=== PATIENT | female | born 1955 | race Caucasian/White ===

== ENCOUNTER 2023-11-13 13:37 | Outpatient (CLI) | payer MEDICARE, MEDICAID, SELFPAY | END 2023-11-13 13:38 | disposition home or self-care (01) | LOC: AMB 11-17 15:15 | PROVIDERS: PCP Family Medicine; Visit Provider Family Medicine | DX: R41.82 Altered mental status, unspecified (principal); M54.9 Dorsalgia, unspecified | CPT/HCPCS: A0425; A0427 ==

== ENCOUNTER 2023-11-13 14:07 | Emergency (ER) | payer MEDICARE, MEDICAID, SELFPAY ==
[2023-11-13] VITALS (43 sets, daily range): BP systolic 138–191; BP diastolic 59–140; PULSE 105–122; RESP 16–26; TEMP 36.1–36.7; O2SAT 90–98; BMI 31.5
--- NOTE | 2023-11-13 14:43 | ED_ITS ---
HPI - Altered Mental Status General Time Seen by Provider: 14:43 <June Parra MD - Last Filed: 11/14/23 21:43> Date Seen: 11/13/23 <June Parra MD - Last Filed: 11/14/23 21:43> Chief Complaint: Altered Mental Status <June Parra MD - Last Filed: 11/14/23 21:43> Stated Complaint: Fall, AMS <June Parra MD - Last Filed: 11/14/23 21:43> Time Seen by Provider: 11/13/23 14:43 <June Parra MD - Last Filed: 11/14/23 21:43> Source: patient, EMS and RN notes reviewed <June Parra MD - Last Filed: 11/14/23 21:43> Mode of arrival: EMS <June Parra MD - Last Filed: 11/14/23 21:43> History of Present Illness HPI narrative: This 68-year-old female is brought in by EMS from [address] [place] [address] where she resides with concern of altered mental status. She reportedly is not near her baseline. She did have a fall on November 10, today is now the . She is noted to have decreased mental status from her baseline. EMS did find her to be 86% on room air, did place her on oxygen. Patient is sleepy but easily arousable, states she does not remember falling. Denies any pain, will basically answer yes no questions, falls asleep easily. She does have advanced directives and is listed to be DNR on her current paperwork. The demographic sheet provided list other past medical history as alcoholic dependence with alcohol-induced persisting dementia, dementia without behavioral disturbance, history of major depressive disorder, GERD, anemia. She has history of degenerative cervical spine disease. She has had hip replacement but do not know which side at this point. She has type 2 diabetes, osteoporosis, hypertension, urinary incontinence, COPD/asthma, seasonal allergies. Current medications: Acetaminophen, cetirizine, divalproex, Advair, metoprolol succinate 25 mg, calcium, multivitamin, vitamin D3, along the Pean, Peridex. Also has p.r.n. medications on her listed sheet. Nursing notes have oxycodone for pain as well. <June Parra MD - Last Filed: 11/14/23 21:43> MD complaint: altered mental status <June Parra MD - Last Filed: 11/14/23 21:43> Related Data Home Medications: Home Medications ?Medication ?Instructions ?Recorded ?Confirmed acetaminophen 500 mg tablet 1,000 mg PO 3XD PRN pain 11/13/23 11/13/23 (Acetaminophen Extra Strength) albuterol sulfate 90 mcg/actuation 2 puff inhalation Q4H PRN 11/13/23 11/13/23 aerosol inhaler (Ventolin HFA) aspirin 81 mg capsule (Vazalore) 81 mg PO DAILY 11/13/23 11/13/23 calcium carbonate (Oyster [place] 500 mg PO BID 11/13/23 11/13/23 Calcium 500) cetirizine 10 mg tablet 10 mg PO DAILY 11/13/23 11/13/23 chlorhexidine gluconate 0.12 % PO DAILY 11/13/23 mouthwash cholecalciferol (vitamin D3) 50 PO 11/13/23 mcg (2,000 unit) tablet divalproex 500 mg tablet,delayed 1,000 mg PO BID 11/13/23 11/13/23 release fluticasone 250 mcg-salmeterol 50 1 ea inhalation BID 11/13/23 11/13/23 mcg/dose blistr powdr for inhalation (Advair Diskus) multivitamin with folic acid 400 1 tab PO DAILY 11/13/23 11/13/23 mcg tablet (Tab-A-Delroy) oxycodone 5 mg tablet 2.5 mg PO Q6H PRN pain 11/13/23 11/13/23 <June Parra MD - Last Filed: 11/14/23 21:43> Allergies/Adverse Reactions: Allergies Allergy/AdvReac Type Severity Reaction Status Date / Time No Known Drug Allergies Allergy Verified 11/13/23 17:07 <June Parra MD - Last Filed: 11/14/23 21:43> Review of Systems Narrative: Patient is not currently reliable historian to give meaningful review of systems. <June Parra MD - Last Filed: 11/14/23 21:43> Exam Const: Vital Signs, click to edit/add: Vital Signs - 24 hr 11/13/23 21:42 Temperature 97.6 F Pulse Rate 111 H Respiratory Rate 18 Blood Pressure 146/62 H Pulse Oximetry 95 Patient is somnolent, is arousable. Will verbalize minimally, mostly stating no to questions. She did tell me that she did not remember when asked her about the fall. Sclera do look clear, conjugate gaze. She is currently wearing oxygen, will have nursing staff see if they can titrate down and monitor what happens with her oxygen saturation. Symmetrical facial function. She does fol low commands, will lift her arms, do note some intention tremor of both of her upper extremities. She will not lift either leg for me but did point in flex her feet for the student that working with us. Lungs sound clear anteriorly, cannot get to posterior lung mejia at this time. CV is fast irregular, do not hear any murmur. Abdomen seems to be nondistended, nontender, do not feel any masses organomegaly. 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 Will raise her arms off the bed. She has some terminal dysmetria when asking to touch her nose. <June Parra MD - Last Filed: 11/14/23 21:43> Vital Signs, click to edit/add: Vital Signs - 24 hr 11/13/23 21:42 Temperature 97.6 F Pulse Rate 111 H Respiratory Rate 18 Blood Pressure 146/62 H Pulse Oximetry 95 <Marlyn Hinojosa MD - Last Filed: 11/13/23 22:22> Documenting provider has reviewed patient's vital signs: yes <June Parra MD - Last Filed: 11/14/23 21:43> Course Course ED Course: This 68-year-old female with underlying dementia with recent fall and it worsening altered mental status will need a head CT to rule out acute intracranial pathology. Will get full complement of labs. She presumably has some new hypoxia, start with a portable chest x-ray. She is mildly tachycardic. Need to consider infectious etiology which certainly could be pneumonia, UTI. She really has nothing focal on exam at this point outside of the hypoxia. Will look at reported to ensure no ischemic pathology. Consider thromboembolic disease, am obtaining screening D-dimer. She is not febrile at this point but will watch for this. Have her on cardiac monitoring and pulse oximetry at this time. <June Parra MD - Last Filed: 11/14/23 21:43> Reevaluation(s) Time of Reevaluation #1: 16:11 <June Parra MD - Last Filed: 11/14/23 21:43> Reevaluation #1: Spoke with her guardian Venkata whom lives in [place]. She states that they have been giving her pain meds, wonder if this is the oxycodone. Patient has not reportedly been eating. She was told that they did do x-rays and they were negative for fracture, we are presuming this is the lumbar spine. Reviewed with her that patient has new anemia, hemoglobin on 08/04/2023 was 12.3 and now she is 8.3[place] [address], infectious etiology needs to be considered as well. We are going to proceed with CT of chest abdomen pelvis with IV contrast. She would have us attempt to figure out what is wrong and see if there is anything easily correctable. She would consider blood transfusion. I will do a type and screen. <June Parra MD - Last Filed: 11/14/23 21:43> Reevaluation #2: Patient was signed out to me by Dr. Roberts to follow up on CT results. Radiology did call with result, she has an L1 compression fracture with some retropulsion and mild central stenosis, she has a comminuted periprosthetic fracture of her right acetabulum as well as fractures of the superior and inferior pubic rami on the right. She does have some associated hemorrhage in the pelvis related to her pelvic fractures, they did not see any active extravasation. She was persistently tachycardic here, did elect to give her blood transfusion. I updated her guardian, Avelina. I reviewed her case with Dr. Mi, we agreed that she would be best served at a larger center. [facility] has agreed to take her in transfer. I did give her a dose of Dilaudid 0.5 mg here, she is really not able to express much, and I suspect she does have a degree of pain which may be part of her tachycardia. Difficult to assess neurologic status in terms of lower extremity strength as she is not able to cooperate with exam at this time. <Marlyn Hinojosa MD - Last Filed: 11/13/23 22:22> Vital Signs Vital signs: Initial Vital Signs Temperature 96.9 F L 11/13/23 14:16 Temperature Source Temporal Artery Scan 11/13/23 14:16 Pulse Rate 111 H 11/13/23 14:16 Pulse Rhythm Regular 11/13/23 14:16 Pulse Strength 3+ Normal 11/13/23 14:16 Respiratory Rate 26 H 11/13/23 14:16 Blood Pressure 191/78 H 11/13/23 14:16 Blood Pressure Mean 115 H 11/13/23 14:16 Blood Pressure Position High-Fowlers 11/13/23 14:16 Pulse Oximetry 96 11/13/23 14:16 Oxygen Delivery Method Nasal Cannula 11/13/23 14:16 Oxygen Flow Rate 4 11/13/23 14:16 Vital Signs Temperature 96.9 F L 11/13/23 14:16 Pulse Rate 111 H 11/13/23 14:16 Respiratory Rate 26 H 11/13/23 14:16 Blood Pressure 191/78 H 11/13/23 14:16 Pulse Oximetry 96 11/13/23 14:16 Oxygen Delivery Method Nasal Cannula 11/13/23 14:16 Oxygen Flow Rate 4 11/13/23 14:16 Temperature 97.6 F 11/13/23 21:42 Pulse Rate 111 H 11/13/23 21:42 Respiratory Rate 18 11/13/23 21:42 Blood Pressure 146/62 H 11/13/23 21:42 Pulse Oximetry 95 11/13/23 21:42 Oxygen Delivery Method Nasal Cannula 11/13/23 20:45 Oxygen Flow Rate 2 11/13/23 20:45 <June Parra MD - Last Filed: 11/14/23 21:43> Initial Vital Signs Temperature 96.9 F L 11/13/23 14:16 Temperature Source Temporal Artery Scan 11/13/23 14:16 Pulse Rate 111 H 11/13/23 14:16 Pulse Rhythm Regular 11/13/23 14:16 Pulse Strength 3+ Normal 11/13/23 14:16 Respiratory Rate 26 H 11/13/23 14:16 Blood Pressure 191/78 H 11/13/23 14:16 Blood Pressure Mean 115 H 11/13/23 14:16 Blood Pressure Position High-Fowlers 11/13/23 14:16 Pulse Oximetry 96 11/13/23 14:16 Oxygen Delivery Method Nasal Cannula 11/13/23 14:16 Oxygen Flow Rate 4 11/13/23 14:16 Vital Signs Temperature 96.9 F L 11/13/23 14:16 Pulse Rate 111 H 11/13/23 14:16 Respiratory Rate 26 H 11/13/23 14:16 Blood Pressure 191/78 H 11/13/23 14:16 Pulse Oximetry 96 11/13/23 14:16 Oxygen Delivery Method Nasal Cannula 11/13/23 14:16 Oxygen Flow Rate 4 11/13/23 14:16 Temperature 97.6 F 11/13/23 21:42 Pulse Rate 111 H 11/13/23 21:42 Respiratory Rate 18 11/13/23 21:42 Blood Pressure 146/62 H 11/13/23 21:42 Pulse Oximetry 95 11/13/23 21:42 Oxygen Delivery Method Nasal Cannula 11/13/23 20:45 Oxygen Flow Rate 2 11/13/23 20:45 <Marlyn Hinojosa MD - Last Filed: 11/13/23 22:22> Medications Administered Medications: Discontinued Medications Generic Name Dose Route Start Last Admin Trade Name Freq PRN Reason Stop Dose Admin Hydromorphone HCl 0.5 mg 11/13/23 19:43 11/13/23 20:17 Hydromorphone 0.5 Mg/0.5 Ml Inj IVP 11/13/23 19:44 0.5 mg ONCE ONE Administration Hydromorphone HCl 0.5 mg 11/13/23 21:17 11/13/23 22:02 Hydromorphone 0.5 Mg/0.5 Ml Inj IVP 11/13/23 21:18 Not Given ONCE ONE Sodium Chloride 250 ml 11/13/23 18:26 11/13/23 20:17 0.9 % Sodium Chloride 250 Ml IV 11/14/23 23:59 250 ml ONCE PRN Administration <June Parra MD - Last Filed: 11/14/23 21:43> Discontinued Medications Generic Name Dose Route Start Last Admin Trade Name Freq PRN Reason Stop Dose Admin Hydromorphone HCl 0.5 mg 11/13/23 19:43 11/13/23 20:17 Hydromorphone 0.5 Mg/0.5 Ml Inj IVP 11/13/23 19:44 0.5 mg ONCE ONE Administration Hydromorphone HCl 0.5 mg 11/13/23 21:17 11/13/23 22:02 Hydromorphone 0.5 Mg/0.5 Ml Inj IVP 11/13/23 21:18 Not Given ONCE ONE Sodium Chloride 250 ml 11/13/23 18:26 11/13/23 20:17 0.9 % Sodium Chloride 250 Ml IV 11/14/23 23:59 250 ml ONCE PRN Administration <Marlyn Hinojosa MD - Last Filed: 11/13/23 22:22> MDM - Altered Mental Status Lab Data Attestation: I reviewed the patient's lab results. <June Parra MD - Last Filed: 11/14/23 21:43> Labs: Lab Results 11/13/23 11/13/23 11/13/23 Range/Units 15:02 15:25 15:30 WBC 17.26 H (4.50-11.00) K/uL RBC 2.79 L (4.00-5.20) m/uL Hgb 8.3 L (12.0-16.0) gm/dL Hct 23.9 L (33.0-51.0) % MCV 86 (80-100) fL MCH 30 (26-34) pg MCHC 35 (32-36) gm/dL RDW Coeff of Gomez 14.1 (11.5-15.5) % Plt Count 288 (140-440) K/uL Neut % (Auto) 74.1 H (42.0-72.0) % Lymph % (Auto) 9.5 L (20-44) % [place] % (Auto) 13.8 H (0.0-11.0) % Eos % (Auto) 0.0 (0.0-7.0) % Baso % (Auto) 0.5 (0.0-3.0) % Neut # (Auto) 12.80 H (1.7-7.0) K/uL Lymph # (Auto) 1.60 (0.90-2.90) K/uL [place] # (Auto) 2.40 H (0.00-0.90) K/UL Eos # (Auto) 0.00 (0.00-0.50) K/uL Baso # (Auto) 0.10 (0.00-0.30) K/uL Abs Immat Gran (auto) 0.40 H (0.00-0.30) K/uL Imm/Tot Granulo (auto) 2.1 % Absolute Retic 0.14 H (0.03-0.08) # Percent Retic 5.1 H (0.5-2.0) % Immature Retic Fraction 13.3 (3.0-15.9) % Retic Hgb Equivalent 28.0 L (29.0-35.0) pg D-Dimer Quant (PE/DVT) (0.00-0.50) ug/ml Sodium 129 L (135-149) mmol/L Potassium 4.0 (3.6-5.1) mmol/L Chloride 94 L (96-114) mmol/L Carbon Dioxide 27 (20-32) mmol/L Anion Gap 8 (7-15) mEq/L BUN 40 H (7-30) mg/dL Creatinine 0.7 (0.5-1.5) mg/dL Estimated Creat Clear 50.41 Estimated GFR 94 ml/min Glucose 236 H (60-115) mg/dL Lactate 1.4 (0.5-1.9) mmol/L Calcium 9.2 (8.4-10.6) mg/dL Iron 36 L (37-170) ug/dL TIBC 301 (265-497) ug/dL % Saturation 12 L (20-50) % Ferritin 203.0 (11.1-264.0) ng/mL Total Bilirubin 0.7 (0.1-1.5) mg/dL AST 26 (12-35) U/L ALT 13 (4-35) U/L Alkaline Phosphatase 60 (40-150) U/L Total Creatine Kinase 123 H (41-117) U/L Troponin I < 0.01 L (0.01-0.04) ng/mL C-Reactive Protein 20.4 H (0.5-1.0) mg/dL Total Protein 7.2 (6.0-8.3) g/dL Albumin 4.0 (3.3-5.0) g/dL Vitamin B12 833 (243-894) pg/mL Procalcitonin 0.17 (<0.50) ng/mL Urine Color (Yellow) Urine Appearance (Clear) Urine pH (5.0-8.5) Ur Specific [place] (1.000-1.030) Urine Protein (Negative) Urine Glucose (UA) (Negative) Urine Ketones (Negative) Urine Blood (Negative) Urine Nitrite (Negative) Urine Bilirubin (Negative) Urine Urobilinogen (0.2-1.0) Ur Leukocyte Esterase (Negative) Urine RBC (0-2) Urine WBC (0-5) Ur Squamous Epith Cells (None-Few) Urine Bacteria (None) Lab Acknowledgement Test Added Blood Type Antibody Screen Crossmatch (AHG) 11/13/23 11/13/23 11/13/23 Range/Units 16:00 16:07 16:13 WBC (4.50-11.00) K/uL RBC (4.00-5.20) m/uL Hgb (12.0-16.0) gm/dL Hct (33.0-51.0) % MCV (80-100) fL MCH (26-34) pg MCHC (32-36) gm/dL RDW Coeff of Gomez (11.5-15.5) % Plt Count (140-440) K/uL Neut % (Auto) (42.0-72.0) % Lymph % (Auto) (20-44) % [place] % (Auto) (0.0-11.0) % Eos % (Auto) (0.0-7.0) % Baso % (Auto) (0.0-3.0) % Neut # (Auto) (1.7-7.0) K/uL Lymph # (Auto) (0.90-2.90) K/uL [place] # (Auto) (0.00-0.90) K/UL Eos # (Auto) (0.00-0.50) K/uL Baso # (Auto) (0.00-0.30) K/uL Abs Immat Gran (auto) (0.00-0.30) K/uL Imm/Tot Granulo (auto) % Absolute Retic (0.03-0.08) # Percent Retic (0.5-2.0) % Immature Retic Fraction (3.0-15.9) % Retic Hgb Equivalent (29.0-35.0) pg D-Dimer Quant (PE/DVT) 2.84 H (0.00-0.50) ug/ml Sodium (135-149) mmol/L Potassium (3.6-5.1) mmol/L Chloride (96-114) mmol/L Carbon Dioxide (20-32) mmol/L Anion Gap (7-15) mEq/L BUN (7-30) mg/dL Creatinine (0.5-1.5) mg/dL Estimated Creat Clear Estimated GFR ml/min Glucose (60-115) mg/dL Lactate (0.5-1.9) mmol/L Calcium (8.4-10.6) mg/dL Iron (37-170) ug/dL TIBC (265-497) ug/dL % Saturation (20-50) % Ferritin (11.1-264.0) ng/mL Total Bilirubin (0.1-1.5) mg/dL AST (12-35) U/L ALT (4-35) U/L Alkaline Phosphatase (40-150) U/L Total Creatine Kinase (41-117) U/L Troponin I (0.01-0.04) ng/mL C-Reactive Protein (0.5-1.0) mg/dL Total Protein (6.0-8.3) g/dL Albumin (3.3-5.0) g/dL Vitamin B12 (243-894) pg/mL Procalcitonin (<0.50) ng/mL Urine Color Yellow (Yellow) Urine Appearance Clear (Clear) Urine pH 7.0 (5.0-8.5) Ur Specific [place] 1.015 (1.000-1.030) Urine Protein Negative (Negative) Urine Glucose (UA) 2+ A (Negative) Urine Ketones Negative (Negative) Urine Blood Negative (Negative) Urine Nitrite Negative (Negative) Urine Bilirubin Negative (Negative) Urine Urobilinogen 0.2 (0.2-1.0) Ur Leukocyte Esterase Negative (Negative) Urine RBC 0-2 (0-2) Urine WBC 0-2 (0-5) Ur Squamous Epith Cells None (None-Few) Urine Bacteria None (None) Lab Acknowledgement Test Added Blood Type Antibody Screen Crossmatch (AHG) 11/13/23 Range/Units 16:48 WBC (4.50-11.00) K/uL RBC (4.00-5.20) m/uL Hgb (12.0-16.0) gm/dL Hct (33.0-51.0) % MCV (80-100) fL MCH (26-34) pg MCHC (32-36) gm/dL RDW Coeff of Gomez (11.5-15.5) % Plt Count (140-440) K/uL Neut % (Auto) (42.0-72.0) % Lymph % (Auto) (20-44) % [place] % (Auto) (0.0-11.0) % Eos % (Auto) (0.0-7.0) % Baso % (Auto) (0.0-3.0) % Neut # (Auto) (1.7-7.0) K/uL Lymph # (Auto) (0.90-2.90) K/uL [place] # (Auto) (0.00-0.90) K/UL Eos # (Auto) (0.00-0.50) K/uL Baso # (Auto) (0.00-0.30) K/uL Abs Immat Gran (auto) (0.00-0.30) K/uL Imm/Tot Granulo (auto) % Absolute Retic (0.03-0.08) # Percent Retic (0.5-2.0) % Immature Retic Fraction (3.0-15.9) % Retic Hgb Equivalent (29.0-35.0) pg D-Dimer Quant (PE/DVT) (0.00-0.50) ug/ml Sodium (135-149) mmol/L Potassium (3.6-5.1) mmol/L Chloride (96-114) mmol/L Carbon Dioxide (20-32) mmol/L Anion Gap (7-15) mEq/L BUN (7-30) mg/dL Creatinine (0.5-1.5) mg/dL Estimated Creat Clear Estimated GFR ml/min Glucose (60-115) mg/dL Lactate (0.5-1.9) mmol/L Calcium (8.4-10.6) mg/dL Iron (37-170) ug/dL TIBC (265-497) ug/dL % Saturation (20-50) % Ferritin (11.1-264.0) ng/mL Total Bilirubin (0.1-1.5) mg/dL AST (12-35) U/L ALT (4-35) U/L Alkaline Phosphatase (40-150) U/L Total Creatine Kinase (41-117) U/L Troponin I (0.01-0.04) ng/mL C-Reactive Protein (0.5-1.0) mg/dL Total Protein (6.0-8.3) g/dL Albumin (3.3-5.0) g/dL Vitamin B12 (243-894) pg/mL Procalcitonin (<0.50) ng/mL Urine Color (Yellow) Urine Appearance (Clear) Urine pH (5.0-8.5) Ur Specific [place] (1.000-1.030) Urine Protein (Negative) Urine Glucose (UA) (Negative) Urine Ketones (Negative) Urine Blood (Negative) Urine Nitrite (Negative) Urine Bilirubin (Negative) Urine Urobilinogen (0.2-1.0) Ur Leukocyte Esterase (Negative) Urine RBC (0-2) Urine WBC (0-5) Ur Squamous Epith Cells (None-Few) Urine Bacteria (None) Lab Acknowledgement Blood Type A Negative Antibody Screen NEGATIVE Crossmatch (AHG) See Detail <June Parra MD - Last Filed: 11/14/23 21:43> Lab Results 11/13/23 11/13/23 11/13/23 Range/Units 15:02 15:25 15:30 WBC 17.26 H (4.50-11.00) K/uL RBC 2.79 L (4.00-5.20) m/uL Hgb 8.3 L (12.0-16.0) gm/dL Hct 23.9 L (33.0-51.0) % MCV 86 (80-100) fL MCH 30 (26-34) pg MCHC 35 (32-36) gm/dL RDW Coeff of Gomez 14.1 (11.5-15.5) % Plt Count 288 (140-440) K/uL Neut % (Auto) 74.1 H (42.0-72.0) % Lymph % (Auto) 9.5 L (20-44) % [place] % (Auto) 13.8 H (0.0-11.0) % Eos % (Auto) 0.0 (0.0-7.0) % Baso % (Auto) 0.5 (0.0-3.0) % Neut # (Auto) 12.80 H (1.7-7.0) K/uL Lymph # (Auto) 1.60 (0.90-2.90) K/uL [place] # (Auto) 2.40 H (0.00-0.90) K/UL Eos # (Auto) 0.00 (0.00-0.50) K/uL Baso # (Auto) 0.10 (0.00-0.30) K/uL Abs Immat Gran (auto) 0.40 H (0.00-0.30) K/uL Imm/Tot Granulo (auto) 2.1 % Absolute Retic 0.14 H (0.03-0.08) # Percent Retic 5.1 H (0.5-2.0) % Immature Retic Fraction 13.3 (3.0-15.9) % Retic Hgb Equivalent 28.0 L (29.0-35.0) pg D-Dimer Quant (PE/DVT) (0.00-0.50) ug/ml Sodium 129 L (135-149) mmol/L Potassium 4.0 (3.6-5.1) mmol/L Chloride 94 L (96-114) mmol/L Carbon Dioxide 27 (20-32) mmol/L Anion Gap 8 (7-15) mEq/L BUN 40 H (7-30) mg/dL Creatinine 0.7 (0.5-1.5) mg/dL Estimated Creat Clear 50.41 Estimated GFR 94 ml/min Glucose 236 H (60-115) mg/dL Lactate 1.4 (0.5-1.9) mmol/L Calcium 9.2 (8.4-10.6) mg/dL Iron 36 L (37-170) ug/dL TIBC 301 (265-497) ug/dL % Saturation 12 L (20-50) % Ferritin 203.0 (11.1-264.0) ng/mL Total Bilirubin 0.7 (0.1-1.5) mg/dL AST 26 (12-35) U/L ALT 13 (4-35) U/L Alkaline Phosphatase 60 (40-150) U/L Total Creatine Kinase 123 H (41-117) U/L Troponin I < 0.01 L (0.01-0.04) ng/mL C-Reactive Protein 20.4 H (0.5-1.0) mg/dL Total Protein 7.2 (6.0-8.3) g/dL Albumin 4.0 (3.3-5.0) g/dL Vitamin B12 833 (243-894) pg/mL Procalcitonin 0.17 (<0.50) ng/mL Urine Color (Yellow) Urine Appearance (Clear) Urine pH (5.0-8.5) Ur Specific [place] (1.000-1.030) Urine Protein (Negative) Urine Glucose (UA) (Negative) Urine Ketones (Negative) Urine Blood (Negative) Urine Nitrite (Negative) Urine Bilirubin (Negative) Urine Urobilinogen (0.2-1.0) Ur Leukocyte Esterase (Negative) Urine RBC (0-2) Urine WBC (0-5) Ur Squamous Epith Cells (None-Few) Urine Bacteria (None) Lab Acknowledgement Test Added Blood Type Antibody Screen Crossmatch (AHG) 11/13/23 11/13/23 11/13/23 Range/Units 16:00 16:07 16:13 WBC (4.50-11.00) K/uL RBC (4.00-5.20) m/uL Hgb (12.0-16.0) gm/dL Hct (33.0-51.0) % MCV (80-100) fL MCH (26-34) pg MCHC (32-36) gm/dL RDW Coeff of Gomez (11.5-15.5) % Plt Count (140-440) K/uL Neut % (Auto) (42.0-72.0) % Lymph % (Auto) (20-44) % [place] % (Auto) (0.0-11.0) % Eos % (Auto) (0.0-7.0) % Baso % (Auto) (0.0-3.0) % Neut # (Auto) (1.7-7.0) K/uL Lymph # (Auto) (0.90-2.90) K/uL [place] # (Auto) (0.00-0.90) K/UL Eos # (Auto) (0.00-0.50) K/uL Baso # (Auto) (0.00-0.30) K/uL Abs Immat Gran (auto) (0.00-0.30) K/uL Imm/Tot Granulo (auto) % Absolute Retic (0.03-0.08) # Percent Retic (0.5-2.0) % Immature Retic Fraction (3.0-15.9) % Retic Hgb Equivalent (29.0-35.0) pg D-Dimer Quant (PE/DVT) 2.84 H (0.00-0.50) ug/ml Sodium (135-149) mmol/L Potassium (3.6-5.1) mmol/L Chloride (96-114) mmol/L Carbon Dioxide (20-32) mmol/L Anion Gap (7-15) mEq/L BUN (7-30) mg/dL Creatinine (0.5-1.5) mg/dL Estimated Creat Clear Estimated GFR ml/min Glucose (60-115) mg/dL Lactate (0.5-1.9) mmol/L Calcium (8.4-10.6) mg/dL Iron (37-170) ug/dL TIBC (265-497) ug/dL % Saturation (20-50) % Ferritin (11.1-264.0) ng/mL Total Bilirubin (0.1-1.5) mg/dL AST (12-35) U/L ALT (4-35) U/L Alkaline Phosphatase (40-150) U/L Total Creatine Kinase (41-117) U/L Troponin I (0.01-0.04) ng/mL C-Reactive Protein (0.5-1.0) mg/dL Total Protein (6.0-8.3) g/dL Albumin (3.3-5.0) g/dL Vitamin B12 (243-894) pg/mL Procalcitonin (<0.50) ng/mL Urine Color Yellow (Yellow) Urine Appearance Clear (Clear) Urine pH 7.0 (5.0-8.5) Ur Specific [place] 1.015 (1.000-1.030) Urine Protein Negative (Negative) Urine Glucose (UA) 2+ A (Negative) Urine Ketones Negative (Negative) Urine Blood Negative (Negative) Urine Nitrite Negative (Negative) Urine Bilirubin Negative (Negative) Urine Urobilinogen 0.2 (0.2-1.0) Ur Leukocyte Esterase Negative (Negative) Urine RBC 0-2 (0-2) Urine WBC 0-2 (0-5) Ur Squamous Epith Cells None (None-Few) Urine Bacteria None (None) Lab Acknowledgement Test Added Blood Type Antibody Screen Crossmatch (AHG) 11/13/23 Range/Units 16:48 WBC (4.50-11.00) K/uL RBC (4.00-5.20) m/uL Hgb (12.0-16.0) gm/dL Hct (33.0-51.0) % MCV (80-100) fL MCH (26-34) pg MCHC (32-36) gm/dL RDW Coeff of Gomez (11.5-15.5) % Plt Count (140-440) K/uL Neut % (Auto) (42.0-72.0) % Lymph % (Auto) (20-44) % [place] % (Auto) (0.0-11.0) % Eos % (Auto) (0.0-7.0) % Baso % (Auto) (0.0-3.0) % Neut # (Auto) (1.7-7.0) K/uL Lymph # (Auto) (0.90-2.90) K/uL [place] # (Auto) (0.00-0.90) K/UL Eos # (Auto) (0.00-0.50) K/uL Baso # (Auto) (0.00-0.30) K/uL Abs Immat Gran (auto) (0.00-0.30) K/uL Imm/Tot Granulo (auto) % Absolute Retic (0.03-0.08) # Percent Retic (0.5-2.0) % Immature Retic Fraction (3.0-15.9) % Retic Hgb Equivalent (29.0-35.0) pg D-Dimer Quant (PE/DVT) (0.00-0.50) ug/ml Sodium (135-149) mmol/L Potassium (3.6-5.1) mmol/L Chloride (96-114) mmol/L Carbon Dioxide (20-32) mmol/L Anion Gap (7-15) mEq/L BUN (7-30) mg/dL Creatinine (0.5-1.5) mg/dL Estimated Creat Clear Estimated GFR ml/min Glucose (60-115) mg/dL Lactate (0.5-1.9) mmol/L Calcium (8.4-10.6) mg/dL Iron (37-170) ug/dL TIBC (265-497) ug/dL % Saturation (20-50) % Ferritin (11.1-264.0) ng/mL Total Bilirubin (0.1-1.5) mg/dL AST (12-35) U/L ALT (4-35) U/L Alkaline Phosphatase (40-150) U/L Total Creatine Kinase (41-117) U/L Troponin I (0.01-0.04) ng/mL C-Reactive Protein (0.5-1.0) mg/dL Total Protein (6.0-8.3) g/dL Albumin (3.3-5.0) g/dL Vitamin B12 (243-894) pg/mL Procalcitonin (<0.50) ng/mL Urine Color (Yellow) Urine Appearance (Clear) Urine pH (5.0-8.5) Ur Specific [place] (1.000-1.030) Urine Protein (Negative) Urine Glucose (UA) (Negative) Urine Ketones (Negative) Urine Blood (Negative) Urine Nitrite (Negative) Urine Bilirubin (Negative) Urine Urobilinogen (0.2-1.0) Ur Leukocyte Esterase (Negative) Urine RBC (0-2) Urine WBC (0-5) Ur Squamous Epith Cells (None-Few) Urine Bacteria (None) Lab Acknowledgement Blood Type A Negative Antibody Screen NEGATIVE Crossmatch (AHG) See Detail <Marlyn Hinojosa MD - Last Filed: 11/13/23 22:22> Imaging Data CT scan - head: Attestation: I have reviewed the pertinent imaging results. <June Mendoza MD - Last Filed: 11/14/23 21:43> Radiologist's impression: Patient: FABIO BAZAN Facility:?[facility] [facility] Patient ID:?[id number] Site Patient ID:?[id number]. Site :?1955 Study:?CT-Head WITHOUT-11/13/2023 3:28:19 PM Ordering Physician:Fredrick Watkins Final Report: INDICATION: AMS TECHNIQUE: CT of the head without contrast. Coronal and sagittal reformats. Bone and soft tissue algorithms. COMPARISON: No prior studies available for comparison at this institution. FINDINGS: No acute intracranial hemorrhage or extra-axial collection. No evidence of acute cortical infarction. No mass effect or midline shift. Moderate generalized cerebral/cerebellar parenchymal volume loss. Moderate regions of decreased attenuation within the periventricular and subcortical white matter of both cerebral hemispheres most likely reflects chronic microvascular ischemic disease and age related change in this patient. Vascular calcifications within the carotid siphons. Orbital contents are normal. No calvarial fractures. No lytic or sclerotic osseous lesions within the calvarium or skull base. Scalp and other imaged soft tissue structures are normal. Mastoid air cells are clear. IMPRESSION: No acute intracranial abnormality. Please note that all CT scans at this facility use dose modulation, iterative reconstruction, and/or weight-based dosing when appropriate to reduce radiation dose to as low as reasonably achievable. Dictated by Henri Dover MD @ 11/13/2023 3:52:44 PM (Electronic Signature) <June Parra MD - Last Filed: 11/14/23 21:43> Chest x-ray: Attestation: I have reviewed the pertinent imaging results. <June Mendoza MD - Last Filed: 11/14/23 21:43> Radiologist's impression: Patient: FABIO BAZAN Facility:?[facility] Patient ID:?[id number] Site Patient ID:?[id number]. Site :?1955 Study:?XRay-Chest 1 VIEW-11/13/2023 3:27:58 PM Ordering Physician:Fredrick Watkins Final Report: INDICATION: Altered mental status. TECHNIQUE: Chest 1 views. COMPARISON: None. FINDINGS: Cardiovascular and mediastinum: Heart size and vasculature are normal in caliber and appearance. Lungs and pleural spaces: Low lung volumes. No sign of infiltrate or mass. No sign of pleural effusion. No pneumothorax. Bones and soft tissues: No significant findings. IMPRESSION: Low lung volumes. No acute or significant findings. Dictated by Jung Adair MD @ 11/13/2023 4:03:23 PM (Electronic Signature) <June Parra MD - Last Filed: 11/14/23 21:43> CT Chest/Ab/Pelvis: Attestation: I have reviewed the pertinent imaging results. <June Mendoza MD - Last Filed: 11/14/23 21:43> Radiologist's impression: Patient: FABIO BAZAN Facility:?[facility] Patient ID:?[id number] Site Patient ID:?[id number]. Site :?1955 Study:?CT-Chest/Abd/Pelvis 95CC ISOVUE 370-11/13/2023 5:05:52 PM Ordering Physician:Fredrick Watkins Final Report: INDICATION: Altered mental status. White blood count 85295. Anemia. Elevated D-dimer. Dementia. TECHNIQUE: CT chest, abdomen and pelvis acquired with 95 cc of Isovue 370 IV contrast. COMPARISON: None. FINDINGS: CHEST: Cardiovascular structures: Aortic atherosclerosis. Thoracic aorta and main pulmonary arteries are normal in caliber. Heart size is within normal limits. Mediastinum and mark: No pathologic lymphadenopathy. Lungs: No pneumothorax. Central airways are patent. Mild bilateral ground-glass opacities are indeterminate. Linear bibasilar scarring or atelectasis. Lungs are otherwise clear. Pleura and pericardium: No effusions. Chest wall and axilla: Unremarkable. ABDOMEN AND PELVIS: Liver: Too small to characterize low-density lesions likely represents incidental cysts or hemangiomas. The liver is otherwise unremarkable. Spleen: Unremarkable. Pancreas: Unremarkable. Gallbladder and bile ducts: No calcified stones or biliary ductal dilatation. Kidneys: Exophytic 1.6 cm lesion in the lateral lower pole of the left kidney does not meet criteria for cyst on the basis of this exam. Bilateral kidneys are otherwise unremarkable. No hydronephrosis. Adrenal glands: Unremarkable. GI tract: No obstruction or focal inflammatory changes. Normal appendix. No free intraperitoneal gas. Lymph nodes: No pathologic lymphadenopathy. Vascular structures: Atherosclerotic disease. No abdominal aortic aneurysm. Pelvic Organs: Heterogeneous ill-defined right pelvic side wall hematoma with heterogeneous stranding extending into the retroperitoneum, right greater than left. There is a ill-defined hematoma causes mass effect on the bladder, uterus and sigmoid colon. Bones: There is an acute complex comminuted periprosthetic fracture of the right acetabulum with medial displacement of the central acetabulum, dorsal rotation of the acetabular component and extension of fracture into the iliac wing. Mildly displaced fractures of the right superior and inferior pubic rami are also present. There is an acute compression fracture of the L1 vertebra with mild loss of height anteriorly and mild bony retropulsion into the central canal. Bone retropulsion causes a mild degree of central canal stenosis. IMPRESSION: 1. Mild bilateral ground-glass opacities are indeterminate and may represent incidental subsegmental atelectasis. Infectious/inflammatory etiologies may be considered in the appropriate clinical setting. Otherwise, no evidence of acute disease in the chest. 2. Acute complex comminuted periprosthetic fracture of the right acetabulum with associated ill-defined right pelvic hematoma. Within the limitations of streak artifact, there is no convincing evidence of active contrast extravasation. 3. Mildly displaced fractures of the right superior and inferior pubic rami. 4. Acute compression fracture of the L1 vertebra with mild loss of height anteriorly and bone retropulsion into the central canal. Bone retropulsion causes a mild degree of central canal stenosis. Discussed with Dr. Hinojosa at 6:05 p.m. on 11/13/2023 via telephone conversation. Dictated by Charlie Tolentino MD @ 11/13/2023 6:08:22 PM Please note that all CT scans at this facility use dose modulation, iterative reconstruction, and/or weight-based dosing when appropriate to reduce radiation dose to as low as reasonably achievable. Dictated by: Charlie Tolentino MD @ 11/13/2023 18:08:39 (Electronic Signature) <June Parra MD - Last Filed: 11/14/23 21:43> ECG Data Attestation: I personally reviewed and interpreted this ECG as follows: (Sinus tachycardia, 113 beats per minute. No acute ischemic change noted, QT corrected 452 milliseconds.) <June Prara MD - Last Filed: 11/14/23 21:43> ECG interpretation date: 11/13/23 <June Parra MD - Last Filed: 11/14/23 21:43> ECG interpretation time: 16:23 <June Parra MD - Last Filed: 11/14/23 21:43> Prior ECG tracings: not available for review <June Parra MD - Last Filed: 11/14/23 21:43> Discharge Plan Discharge Clinical Impression: Acetabulum fracture, right, Altered mental status, Closed fracture of ramus of right pubis, Closed L1 vertebral fracture <June Parra MD - Last Filed: 11/14/23 21:43> Patient Disposition: [facility] <June Parra MD - Last Filed: 11/14/23 21:43> Discharge Location: [facility] [place] <June Parra MD - Last Filed: 11/14/23 21:43> Condition: Stable <June aPrra MD - Last Filed: 11/14/23 21:43>
--- NOTE | 2023-11-13 14:47 | PC.SOCIAL ---
Discharge planning: Received a call from Josefina House, , Director of [facility] assisted living care at [facility], stating pt needs a higher level of care than they can provide as they can only provide one person assist. Per Josefina, she has already sent pt's information to [facility] requesting admission to that facility when there is a bed available on 11/17/23. Josefina confirmed that pt fall at the facility and resulting injury from that fall were reported to [facility] by Josefina on 11/12/23. Called Sanjana in admissions at [facility], . Sanjana confirmed they are aware of pt's need for [facility]itentiary placement and will evaluate pt on Thursday to see if she is appropriate for admission to a bed available there. Per Sanjana, there is no one available at [facility] to evaluate pt for admit or to accept pt for admit prior to Thursday. 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
--- NOTE | 2023-11-13 14:57 | CRLHL7_ITS ---
For Patients: As a result of the Century Cures Act, medical imaging exams and procedure reports are released immediately into your electronic medical record. You may view this report before your referring provider. If you have questions, please contact your health care provider. INDICATION: AMS TECHNIQUE: CT of the head without contrast. Coronal and sagittal reformats. Bone and soft tissue algorithms. COMPARISON: No prior studies available for comparison at this institution. FINDINGS: No acute intracranial hemorrhage or extra-axial collection. No evidence of acute cortical infarction. No mass effect or midline shift. Moderate generalized cerebral/cerebellar parenchymal volume loss. Moderate regions of decreased attenuation within the periventricular and subcortical white matter of both cerebral hemispheres most likely reflects chronic microvascular ischemic disease and age related change in this patient. Vascular calcifications within the carotid siphons. Orbital contents are normal. No calvarial fractures. No lytic or sclerotic osseous lesions within the calvarium or skull base. Scalp and other imaged soft tissue structures are normal. Mastoid air cells are clear. IMPRESSION: No acute intracranial abnormality. Please note that all CT scans at this facility use dose modulation, iterative reconstruction, and/or weight-based dosing when appropriate to reduce radiation dose to as low as reasonably achievable. Dictated by Henri Dover MD @ 11/13/2023 3:52:44 PM (Electronically Signed)
--- NOTE | 2023-11-13 14:57 | CRLHL7_ITS ---
For Patients: As a result of the Cures Act, medical imaging exams and procedure reports are released immediately into your electronic medical record. You may view this report before your referring provider. If you have questions, please contact your health care provider. INDICATION: Altered mental status. TECHNIQUE: Chest 1 views. COMPARISON: None. FINDINGS: Cardiovascular and mediastinum: Heart size and vasculature are normal in caliber and appearance. Lungs and pleural spaces: Low lung volumes. No sign of infiltrate or mass. No sign of pleural effusion. No pneumothorax. Bones and soft tissues: No significant findings. IMPRESSION: Low lung volumes. No acute or significant findings. Dictated by Jung Adair MD @ 11/13/2023 4:03:23 PM (Electronically Signed)
[2023-11-13 15:35] LABS: Lactate* 1.4 mmol/L (0.5-1.9)
[2023-11-13 15:38] LABS: Basophils Percent Auto 0.5 % (0.0-3.0); Hematocrit 23.9 % (33.0-51.0); Hemoglobin* 8.3 gm/dL (12.0-16.0); Immature Granulocytes Pct Auto 2.1 %; Lymphocytes Percent Auto 9.5 % (20-44); Mean Corpuscular HGB Conc 35 gm/dL (32-36); Mean Corpuscular Hemoglobin 30 pg (26-34); Mean Corpuscular Volume 86 fL (80-100); Monocytes Percent Auto 13.8 % (0.0-11.0); Neutrophils Percent Auto 74.1 % (42.0-72.0); Platelet Count* 288 K/uL (140-440); RDW Coefficient of Variation % 14.1 % (11.5-15.5); Red Blood Count 2.79 m/uL (4.00-5.20); White Blood Count* 17.26 K/uL (4.50-11.00)
[2023-11-13 15:45] LABS: Slide Review Reflex No
[2023-11-13 15:59] LABS: Chloride* 94 mmol/L (96-114); Sodium* 129 mmol/L (135-149)
[2023-11-13 16:02] LABS: Alanine Aminotransferase* 13 U/L (4-35); Alkaline Phosphatase* 60 U/L (40-150); Anion Gap 8 mEq/L (7-15); Aspartate Amino Transferase* 26 U/L (12-35); Bilirubin Total* 0.7 mg/dL (0.1-1.5); Blood Urea Nitrogen* 40 mg/dL (7-30); Carbon Dioxide* 27 mmol/L (20-32); Creatinine* 0.7 mg/dL (0.5-1.5); Est. Creatinine Clearance* 50.41; Estimated Glomerular Filt Rate 94 ml/min; Total Protein* 7.2 g/dL (6.0-8.3)
[2023-11-13 16:03] LABS: Calcium* 9.2 mg/dL (8.4-10.6); Glucose* 236 mg/dL (60-115)
[2023-11-13 16:16] LABS: C Reactive Protein* 20.4 mg/dL (0.5-1.0)
[2023-11-13 16:17] LABS: Creatine Kinase* 123 U/L (41-117)
--- NOTE | 2023-11-13 16:19 | CRLHL7_ITS ---
For Patients: As a result of the Century Cures Act, medical imaging exams and procedure reports are released immediately into your electronic medical record. You may view this report before your referring provider. If you have questions, please contact your health care provider. INDICATION: Altered mental status. White blood count 71958. Anemia. Elevated D-dimer. Dementia. TECHNIQUE: CT chest, abdomen and pelvis acquired with 95 cc of Isovue 370 IV contrast. COMPARISON: None. FINDINGS: CHEST: Cardiovascular structures: Aortic atherosclerosis. Thoracic aorta and main pulmonary arteries are normal in caliber. Heart size is within normal limits. Mediastinum and mark: No pathologic lymphadenopathy. Lungs: No pneumothorax. Central airways are patent. Mild bilateral ground-glass opacities are indeterminate. Linear bibasilar scarring or atelectasis. Lungs are otherwise clear. Pleura and pericardium: No effusions. Chest wall and axilla: Unremarkable. ABDOMEN AND PELVIS: Liver: Too small to characterize low-density lesions likely represents incidental cysts or hemangiomas. The liver is otherwise unremarkable. Spleen: Unremarkable. Pancreas: Unremarkable. Gallbladder and bile ducts: No calcified stones or biliary ductal dilatation. Kidneys: Exophytic 1.6 cm lesion in the lateral lower pole of the left kidney does not meet criteria for cyst on the basis of this exam. Bilateral kidneys are otherwise unremarkable. No hydronephrosis. Adrenal glands: Unremarkable. GI tract: No obstruction or focal inflammatory changes. Normal appendix. No free intraperitoneal gas. Lymph nodes: No pathologic lymphadenopathy. Vascular structures: Atherosclerotic disease. No abdominal aortic aneurysm. Pelvic Organs: Heterogeneous ill-defined right pelvic side wall hematoma with heterogeneous stranding extending into the retroperitoneum, right greater than left. There is a ill-defined hematoma causes mass effect on the bladder, uterus and sigmoid colon. Bones: There is an acute complex comminuted periprosthetic fracture of the right acetabulum with medial displacement of the central acetabulum, dorsal rotation of the acetabular component and extension of fracture into the iliac wing. Mildly displaced fractures of the right superior and inferior pubic rami are also present. There is an acute compression fracture of the L1 vertebra with mild loss of height anteriorly and mild bony retropulsion into the central canal. Bone retropulsion causes a mild degree of central canal stenosis. IMPRESSION: 1. Mild bilateral ground-glass opacities are indeterminate and may represent incidental subsegmental atelectasis. Infectious/inflammatory etiologies may be considered in the appropriate clinical setting. Otherwise, no evidence of acute disease in the chest. 2. Acute complex comminuted periprosthetic fracture of the right acetabulum with associated ill-defined right pelvic hematoma. Within the limitations of streak artifact, there is no convincing evidence of active contrast extravasation. 3. Mildly displaced fractures of the right superior and inferior pubic rami. 4. Acute compression fracture of the L1 vertebra with mild loss of height anteriorly and bone retropulsion into the central canal. Bone retropulsion causes a mild degree of central canal stenosis. Discussed with Dr. Hinojosa at 6:05 p.m. on 11/13/2023 via telephone conversation. Dictated by Charlie Tolentino MD @ 11/13/2023 6:08:22 PM Please note that all CT scans at this facility use dose modulation, iterative reconstruction, and/or weight-based dosing when appropriate to reduce radiation dose to as low as reasonably achievable. Dictated by: Charlie Tolentino MD @ 11/13/2023 18:08:39 (Electronically Signed)
[2023-11-13 16:27] LABS: Appearance Urine Clear (Clear); Bilirubin Urine Negative (Negative); Blood Urine Negative (Negative); Color Urine Yellow (Yellow); Glucose Urine 2+ (Negative); Ketones Urine Negative (Negative); Leukocyte Esterase Urine Negative (Negative); Nitrite Urine Negative (Negative); Protein Urine Negative (Negative); Specific Gravity Urine 1.015 (1.000-1.030); Urobilinogen Urine 0.2 (0.2-1.0)
[2023-11-13 16:31] LABS: Immature Reticulocyte Fraction 13.3 % (3.0-15.9); Reticulocyte Percent 5.1 % (0.5-2.0); Reticulocytes Absolute 0.14 # (0.03-0.08)
[2023-11-13 16:32] LABS: D Dimer Quantitative* 2.84 ug/ml (0.00-0.50)
[2023-11-13 16:35] LABS: Procalcitonin* 0.17 ng/mL (<0.50)
[2023-11-13 16:36] LABS: Troponin I* < 0.01 ng/mL (0.01-0.04)
[2023-11-13 16:36] LABS: RBC Urine 0-2 (0-2); WBC Urine 0-2 (0-5)
[2023-11-13 17:46] LABS: Vitamin B12* 833 pg/mL (243-894)
[2023-11-13 17:55] LABS: Iron* 36 ug/dL (37-170); Percent Iron Saturation 12 % (20-50); Total Iron Binding Capacity 301 ug/dL (265-497)
--- NOTE | 2023-11-13 18:21 | CRLHL7_ITS ---
For Patients: As a result of the 21st Century Cures Act, medical imaging exams and procedure reports are released immediately into your electronic medical record. You may view this report before your referring provider. If you have questions, please contact your health care provider. EXAM: CT OF THE RIGHT HIP, WITHOUT CONTRAST CLINICAL INDICATION: Pain. COMPARISON STUDIES: None. TECHNICAL: Non-contrast CT of the pelvis with axial images. Sagittal oblique and coronal oblique reformatted images of the pelvis and small [id number] axial reformatted images of the right hip created. FINDINGS: RIGHT HIP: Right WILL. There is a comminuted displaced fracture of the right acetabular region with superior and medial impaction the acetabular component. The fracture involves the posterior, medial superior wall of the acetabulum and extends into the anterior aspect of the right iliac wing. There is a hematoma in the right pelvic sidewall with mass effect on the pelvic contents that measures 6.5 x 4.5 x 3.5 cm in size. There is additional hemorrhage in the extraperitoneal space of the right pelvis and lower abdomen including extending into the space of Retzius. No extravasation of intravascular contrast is evident. Healed fracture adjacent to the proximal right femoral component. No acute femoral fracture. OSSEOUS STRUCTURES: Acute mildly displaced fracture of the right superior pubic ramus and acute moderately displaced fracture of the right inferior pubic ramus. No worrisome osseous lesion. OTHER JOINT SPACES: Left Hip: Left WILL. Components appear well seated. SI Joints: Degenerative changes in the SI joints. Lumbar Spine: Degenerative changes in the lower lumbar spine. MUSCLES AND TENDONS: Small amount of hemorrhage in the right iliacus musculature. No intramuscular hematoma. Mild right gluteus medius muscular atrophy. No retracted tendon tear. SOFT TISSUES: No subcutaneous edema, fluid collection or hematoma. INTRAPELVIC CONTENTS: Displacement of the low intrapelvic contents from the right pelvic sidewall hematoma. No free fluid. NEUROVASCULAR STRUCTURES: No extravascular extravasation. IMPRESSION: 1. Right WILL with comminuted impacted displaced fracture of the right acetabular region extending into the right iliac wing. Adjacent right pelvic sidewall hematoma and hemorrhage in the extraperitoneal space of the pelvis and abdomen. Associated mass effect in the low pelvis. 2. Small amount of hemorrhage in the right iliacus musculature. 3. Acute fractures of the right superior and inferior pubic rami. 4. Uncomplicated left WILL. 5. Degenerative changes in the SI joints and lower lumbar spine. Please note that all CT scans at this facility use dose modulation, iterative reconstruction, and/or weight-based dosing when appropriate to reduce radiation dose to as low as reasonably achievable. Dictated by Jay Jay Gonzales MD @ 11/17/2023 8:28:41 AM (Electronically Signed)
--- NOTE | 2023-11-13 18:27 | ED.NURSE ---
Updated resident's assisted living facility, [facility], of patient condition. Phone number [phone].
[2023-11-13] MEDS: HYDROmorphone 0.5 mg/0.5 ml inj IVP (20:17)
[2023-11-13] MEDS: 0.9 % SODIUM CHLORIDE 250 ml IV (20:17)
== END 2023-11-13 22:07 | disposition short-term general hospital (02) ==
PROVIDERS: Emergency Provider Family Medicine; PCP Family Medicine
DX: S32.401A Unspecified fracture of right acetabulum, initial encounter for closed fracture (principal); S32.591A Other specified fracture of right pubis, initial encounter for closed fracture; S32.019A Unspecified fracture of first lumbar vertebra, initial encounter for closed fracture; W19.XXXA Unspecified fall, initial encounter
CPT/HCPCS: 36415; 36430; 70450; 71045; 71260; 73700; 74177; 80053; 81001; 82550; 82607; 82728; 83540; 83550; 83605; 84145; 84484; 85025; 85045; 85379; 86140; 86850; 86900; 86901; 86922; 87040; 93005; 94761; 96374; 99285; J1170; J7050; P9016; Q9967

== ENCOUNTER 2023-11-13 21:55 | Outpatient (CLI) | payer MEDICARE, MEDICAID, SELFPAY | END 2023-11-13 21:56 | disposition home or self-care (01) | LOC: AMB 11-17 17:45 | PROVIDERS: PCP Family Medicine; Visit Provider Emergency Medicine | DX: S32.401S Unspecified fracture of right acetabulum, sequela (principal); S32.501S Unspecified fracture of right pubis, sequela; R41.82 Altered mental status, unspecified; S32.019S Unspecified fracture of first lumbar vertebra, sequela | CPT/HCPCS: A0425; A0427 ==